=== PATIENT | male | born 1995 | race Caucasian/White ===

== ENCOUNTER 2023-06-29 23:00 | Inpatient (IN) | payer BC ==
[~2023-06-29] VITALS: Ht 170.2 cm; Wt 90.7 kg
[2023-06-29 23:06] VITALS: BP 130/90; PULSE 90; RESP 17; TEMP 97.6; O2SAT 95
[2023-06-30 00:22] VITALS: O2SAT 96
[2023-06-30] MEDS ORDERED: NACL 0.9% 1,000 ML IV ONE (00:45)
[2023-06-30] MEDS ORDERED: LORazepam 2 MG/ML VIAL IVP ONE (00:55)
[2023-06-30 00:58] LABS: BASOPHILS # (AUTO) 0.1 K/uL (0.00-0.22); BASOPHILS % (AUTO) 1.6 % (0.0-2.0); EOSINOPHILS # (AUTO) 0.1 K/uL (0-0.4); HEMATOCRIT 50.9 % (36-52); HEMOGLOBIN 16.9 g/dL (12.0-18.0); LYMPHOCYTES # (AUTO) 3.6 K/uL (2.0-11.5); LYMPHOCYTES % (AUTO) 56.4 % (20.5-51.1); MEAN CORPUSCULAR HEMOGLOBIN 29 pg (27-31); MEAN CORPUSCULAR HGB CONC 33 g/dL (33-37); MEAN CORPUSCULAR VOLUME 87.4 fL (80-94); MONOCYTES # (AUTO) 0.4 K/uL (0.8-1.0); MONOCYTES % (AUTO) 6.9 % (1.7-9.3); NEUTROPHILS # (AUTO) 2.2 K/uL (1.8-7.7); NEUTROPHILS % (AUTO) 34.1 % (42.2-75.2); PLATELET COUNT (AUTO) 395 K/uL (140-450); RED BLOOD CELL COUNT(AUTO) 5.82 MIL/uL (4.20-6.10); RED CELL DISTRIBUTION WIDTH 18.2 % (11.6-13.7); WHITE BLOOD COUNT (AUTO) 6.4 K/uL (4.8-10.8)
[2023-06-30 01:15] LABS: ALANINE AMINOTRANSFERASE 95 U/L (12-78); ALBUMIN 3.9 g/dL (3.4-5.0); ALKALINE PHOSPHATASE 63 U/L (50-136); ANION GAP 13.8 (8-16); ASPARTATE AMINOTRANSFERASE 87 U/L (15-37); CALCIUM 8.1 mg/dL (8.5-10.1); CARBON DIOXIDE 31.9 mmol/L (21-32); CHLORIDE 107 mmol/L (98-107); CREATININE 1.2 mg/dL (0.6-1.3); GFR ARICAN-AMERICAN 91 mL/min (>90); GFR NON ARICAN-AMERICAN 76 mL/min (>90); GLUCOSE 80 mg/dL (74-106); POTASSIUM 3.7 mmol/L (3.5-5.1); SODIUM SERUM 149 mmol/L (136-145); TOTAL BILIRUBIN 0.2 mg/dL (0.0-1.0); TOTAL PROTEIN, SERUM 7.7 g/dL (6.4-8.2); UREA NITROGEN, BLOOD 7 mg/dL (7-18)
[2023-06-30 01:21] LABS: ALCOHOL, BLOOD 445 mg/dL (<10)
[2023-06-30 03:04] VITALS: O2SAT 95
[2023-06-30] MEDS ORDERED: HYDROcodone/APAP 7.5/325 MG 1 TAB PO PRN (04:05)
[2023-06-30] MEDS ORDERED: POTASSIUM CHLORIDE 10 MEQ TABER PO PRN (04:05)
[2023-06-30] MEDS ORDERED: DOCUSATE SODIUM 100 MG GELCAP PO PRN (04:05)
[2023-06-30] MEDS ORDERED: guaiFENesin DM 200/20 MG-10 ML 10 ML UDC PO PRN (04:05)
[2023-06-30] MEDS ORDERED: ACETAMINOPHEN 325 MG TAB PO PRN (04:05)
[2023-06-30] MEDS ORDERED: LORazepam 2 MG/ML VIAL IVP PRN (04:05)
[2023-06-30] MEDS ORDERED: ONDANSETRON 4 MG/2 ML VIAL IM/IVP PRN (04:05)
[2023-06-30] MEDS ORDERED: NACL 0.9% 1,000 ML IV SCH (04:05)
[2023-06-30] MEDS ORDERED: ZOLPIDEM 5 MG TAB PO PRN (04:05)
[2023-06-30] MEDS ORDERED: ATI.5 PO (05:02)
[2023-06-30] MEDS ORDERED: THIA100T45 PO (05:06)
[2023-06-30] MEDS ORDERED: CABO6SUS IM (05:06)
[2023-06-30] MEDS ORDERED: TEST100A SQ (05:14)
[2023-06-30 06:03] VITALS: O2SAT 96
[2023-06-30] MEDS ORDERED: DEXT 5% / NACL 0.45% 1,000 ML IV SCH (08:20)
[2023-06-30 08:31] VITALS: BP 124/80; PULSE 79; RESP 17; O2SAT 98
[2023-06-30] MEDS ORDERED: PANTOPRAZOLE 40 MG TABEC PO SCH (09:00)
== END 2023-06-30 08:30 | disposition left against medical advice (07) | DRG 894 ==
LOC: MED 23:00 → MTU 06-30 04:08
PROVIDERS: ADMIT Student in an Organized Health Care Education/Training Program; ATTEND Student in an Organized Health Care Education/Training Program
DX: F10.129 Alcohol abuse with intoxication, unspecified (principal); Y90.9 Presence of alcohol in blood, level not specified; Z53.29 Procedure and treatment not carried out because of patient's decision for other reasons; R56.9 Unspecified convulsions
CPT/HCPCS: 36415; 71045; 80053; 84484; 85025; 93005; 96361; 96374; 96376; 99285; G0482; J2060